=== PATIENT | male | born 1970 | race Caucasian/White ===

== ENCOUNTER → 2018-04-17 14:40 | Outpatient (CLI) | payer MEDICARE, MEDICAID, SELFPAY ==
[2018-04-17 16:00] LABS: INR 2.8 (0.9-1.3); Prothrombin Time 30.1 SECONDS (10.1-12.7)
== END ==
PROVIDERS: PCP Family Medicine; Visit Provider Family Medicine
DX: R00.2 Palpitations (principal); I82.409 Acute embolism and thrombosis of unspecified deep veins of unspecified lower extremity
CPT/HCPCS: 36415; 85610

== ENCOUNTER → 2018-05-19 11:21 | Outpatient (CLI) | payer MEDICARE, MEDICAID, SELFPAY ==
[2018-05-19 12:14] LABS: INR 2.6 (0.9-1.3); Prothrombin Time 28.7 SECONDS (10.1-12.7)
== END ==
PROVIDERS: PCP Family Medicine; Visit Provider Family Medicine
DX: R00.2 Palpitations (principal); I82.409 Acute embolism and thrombosis of unspecified deep veins of unspecified lower extremity
CPT/HCPCS: 36415; 85610

== ENCOUNTER → 2018-07-14 09:13 | Outpatient (CLI) | payer MEDICARE, MEDICAID, SELFPAY ==
[2018-07-14 10:07] LABS: Prothrombin Time 33.5 SECONDS (10.1-12.7)
== END ==
PROVIDERS: PCP Family Medicine; Visit Provider Family Medicine
DX: R00.2 Palpitations (principal); I82.409 Acute embolism and thrombosis of unspecified deep veins of unspecified lower extremity
CPT/HCPCS: 36415; 85610

== ENCOUNTER → 2018-09-16 10:44 | Outpatient (CLI) | payer MEDICARE, MEDICAID, SELFPAY ==
[2018-09-16 11:33] LABS: INR 3.3 (0.9-1.3); Prothrombin Time 36.8 SECONDS (10.1-12.7)
== END ==
PROVIDERS: PCP Family Medicine; Visit Provider Family Medicine
DX: R00.2 Palpitations (principal); I82.409 Acute embolism and thrombosis of unspecified deep veins of unspecified lower extremity
CPT/HCPCS: 36415; 85610

== ENCOUNTER → 2018-10-20 09:08 | Outpatient (CLI) | payer MEDICARE, MEDICAID, SELFPAY ==
[2018-10-20 10:31] LABS: INR 2.5 (0.9-1.3); Prothrombin Time 28.9 SECONDS (10.1-12.7)
== END ==
PROVIDERS: PCP Family Medicine; Visit Provider Family Medicine
DX: I82.409 Acute embolism and thrombosis of unspecified deep veins of unspecified lower extremity (principal); Z79.01 Long term (current) use of anticoagulants
CPT/HCPCS: 36415; 85610

== ENCOUNTER → 2018-11-19 12:12 | Outpatient (CLI) | payer MEDICARE, MEDICAID, SELFPAY ==
[2018-11-19 12:38] LABS: Prothrombin Time 35.8 SECONDS (10.1-12.7)
== END ==
PROVIDERS: PCP Family Medicine; Visit Provider Family Medicine
DX: I82.409 Acute embolism and thrombosis of unspecified deep veins of unspecified lower extremity (principal); Z79.01 Long term (current) use of anticoagulants
CPT/HCPCS: 36415; 85610

== ENCOUNTER → 2018-12-15 13:36 | Outpatient (CLI) | payer MEDICARE, MEDICAID, SELFPAY ==
[2018-12-15 14:39] LABS: INR 3.1 (0.9-1.3); Prothrombin Time 36.5 SECONDS (10.1-12.7)
== END ==
PROVIDERS: PCP Family Medicine; Visit Provider Family Medicine
DX: I82.409 Acute embolism and thrombosis of unspecified deep veins of unspecified lower extremity (principal)
CPT/HCPCS: 36415; 85610

== ENCOUNTER → 2019-01-13 12:42 | Outpatient (CLI) | payer MEDICARE, MEDICAID, SELFPAY ==
[2019-01-13 13:56] LABS: INR 3.1 (0.9-1.3)
== END ==
PROVIDERS: PCP Family Medicine; Visit Provider Family Medicine
DX: I82.409 Acute embolism and thrombosis of unspecified deep veins of unspecified lower extremity (principal)
CPT/HCPCS: 36415; 85610

== ENCOUNTER → 2019-02-12 14:33 | Outpatient (CLI) | payer MEDICARE, MEDICAID, SELFPAY ==
[2019-02-12 16:23] LABS: INR 2.4 (0.9-1.3); Prothrombin Time 28.5 SECONDS (10.1-12.7)
== END ==
PROVIDERS: PCP Family Medicine; Visit Provider Family Medicine
DX: I82.409 Acute embolism and thrombosis of unspecified deep veins of unspecified lower extremity (principal)
CPT/HCPCS: 36415; 85610

== ENCOUNTER → 2019-03-13 10:24 | Outpatient (ROUT) | payer MEDICARE, SELFPAY ==
[2019-03-13 10:32] LABS: INR 3.1 (0.9-1.3); Prothrombin Time 37.3 SECONDS (10.1-12.7)
== END ==
PROVIDERS: Visit Provider Family Medicine
DX: I82.409 Acute embolism and thrombosis of unspecified deep veins of unspecified lower extremity (principal)
CPT/HCPCS: 85610

== ENCOUNTER → 2019-04-14 10:52 | Outpatient (CLI) | payer MEDICARE, MEDICAID, SELFPAY ==
[2019-04-14 12:23] LABS: INR 3.3 (0.9-1.3); Prothrombin Time 38.4 SECONDS (10.1-12.7)
== END ==
PROVIDERS: PCP Family Medicine; Visit Provider Family Medicine
DX: I82.409 Acute embolism and thrombosis of unspecified deep veins of unspecified lower extremity (principal)
CPT/HCPCS: 36415; 85610

== ENCOUNTER → 2019-05-18 11:43 | Outpatient (CLI) | payer MEDICARE, MEDICAID, SELFPAY ==
[2019-05-18 12:49] LABS: INR 2.7 (0.9-1.3); Prothrombin Time 31.7 SECONDS (10.1-12.7)
== END ==
PROVIDERS: PCP Student in an Organized Health Care Education/Training Program; Visit Provider Student in an Organized Health Care Education/Training Program
DX: I82.409 Acute embolism and thrombosis of unspecified deep veins of unspecified lower extremity (principal)
CPT/HCPCS: 36415; 85610

== ENCOUNTER → 2019-06-15 12:44 | Outpatient (CLI) | payer MEDICARE, MEDICAID, SELFPAY ==
[2019-06-15 13:52] LABS: INR 2.1 (0.9-1.3); Prothrombin Time 24.6 SECONDS (10.1-12.7)
== END ==
PROVIDERS: PCP Student in an Organized Health Care Education/Training Program; Visit Provider Student in an Organized Health Care Education/Training Program
DX: I82.409 Acute embolism and thrombosis of unspecified deep veins of unspecified lower extremity (principal)
CPT/HCPCS: 36415; 85610

== ENCOUNTER → 2019-07-16 15:07 | Outpatient (CLI) | payer MEDICARE, MEDICAID, SELFPAY ==
[2019-07-16 15:53] LABS: INR 2.5 (0.9-1.3); Prothrombin Time 29.4 SECONDS (10.1-12.7)
== END ==
PROVIDERS: PCP Student in an Organized Health Care Education/Training Program; Visit Provider Family Medicine
DX: I82.409 Acute embolism and thrombosis of unspecified deep veins of unspecified lower extremity (principal)
CPT/HCPCS: 36415; 85610

== ENCOUNTER 2019-07-28 12:19 | Emergency (ER) | payer MEDICARE, OTHER, MEDICAID, SELFPAY ==
[2019-07-28 12:28] VITALS: BP 125/79; PULSE 66; RESP 13; TEMP 36.4; O2SAT 99
--- NOTE | 2019-07-28 13:09 | ED.LOWEXIN ---
HPI - Extremity Injury (Lower) <Pamela Metzger PA-C - Last Filed: 07/28/19 16:28> General Chief Complaint: Extremity Injury, Lower Stated Complaint: UNABLE TO PUT WEIGHT ON RIGHT ANKLE Time Seen by Provider: 07/28/19 12:37 Source: patient Mode of arrival: Ambulatory History of Present Illness HPI Narrative: Patient complains of pain in the right posterior heel, he thinks may be started on Saturday or at least worsening since then. He denies any fall or specific trauma, states he thinks maybe he walked a lot before the onset of pain. He does have a history of gout but states that this is not like previous episodes. He has taken indomethacin and allopurinol for that in the past. He has not noted new swelling in the leg. He states that pain is fairly constant, worse 1st thing in the morning and when he steps out of bed. He has tried ice, no medications. He states he is on warfarin for a left-sided DVT. He has not noted any pain approximately nor any new swelling. He denies any chest pain or dyspnea. He states he came here because unable to see PCP until a couple of weeks from now. Unable to add additional medical history above to chart secondary to technical issues Related Data Home Medications Medication Instructions Recorded Confirmed HYDROCHLOROTHIAZIDE (Hydrodiuril / 25 mg PO Q DAY #0 05/30/07 Hctz) LISINOPRIL (Zestril / Prinivil) 0 PO * DOSE/FREQUENCY #0 05/30/07 Metoprolol Tartrate (Lopressor) 100 mg PO BID #0 05/30/07 omeprazole 40 mg PO QDAY #0 08/24/12 warfarin [Coumadin] 10 mg PO QDAY #0 08/24/12 Previous Rx's Medication Instructions Recorded colchicine 0.6 mg PO TID #30 tab 07/03/16 indomethacin [Indocin] 50 mg MO Q6H PRN #120 tab 07/03/16 prednisone 20 mg PO SEE INSTRUCTIONS #15 tab 07/03/16 Review of Systems <Pamela Metzger PA-C - Last Filed: 07/28/19 16:28> Review of Systems ROS Unobtainable: All systems reviewed & are unremarkable except as noted in HPI and below PFSH <Pamela Metzger PA-C - Last Filed: 07/28/19 16:28> Family History Other Gout Social History Smoking Status: Never smoker Family History Other Gout Social History Smoking Status: Never smoker Exam <Pamela Metzger PA-C - Last Filed: 07/28/19 16:28> Narrative Exam Narrative: GENERAL APPEARANCE: Patient sitting comfortably, in no distress. LUNGS: Clear to auscultation bilaterally. HEART: Rate and rhythm regular without murmur, normal S1 and S2, no S3 or S4. EXTREMITIES: Feet are warm and pink with intact pedal pulses, sensation grossly intact MUSCULOSKELETAL: Mild tenderness at the right distal Achilles and aponeurosis of the heel. No tenderness elsewhere over the foot or ankle. No tenderness over the calf. Full range of motion of the knee, ankle and foot nonweightbearing. DERMATOLOGIC: Mild erythema over the proximal Achilles area, nontender, no open areas or exanthem Initial Vital Signs Initial Vital Signs: Vital Signs Temperature 97.6 F 07/28/19 12:28 Pulse Rate 66 07/28/19 12:28 Respiratory Rate 13 07/28/19 12:28 Blood Pressure 125/79 07/28/19 12:28 Pulse Oximetry 99 07/28/19 12:28 <Arsen Garcia DO - Last Filed: 07/28/19 20:00> Initial Vital Signs Initial Vital Signs: Vital Signs Temperature 97.6 F 07/28/19 12:28 Pulse Rate 66 07/28/19 12:28 Respiratory Rate 13 07/28/19 12:28 Blood Pressure 125/79 07/28/19 12:28 Pulse Oximetry 99 07/28/19 12:28 Course <Pamela Metzger PA-C - Last Filed: 07/28/19 16:28> Vital Signs Vital signs: Vital Signs - 8 hr 07/28/19 12:28 Temperature 97.6 F Pulse Rate 66 Respiratory Rate 13 Blood Pressure 125/79 Pulse Oximetry 99 <DO Destiney Wilson Last Filed: 07/28/19 20:00> Vital Signs Vital signs: Vital Signs - 8 hr 07/28/19 12:28 Temperature 97.6 F Pulse Rate 66 Respiratory Rate 13 Blood Pressure 125/79 Pulse Oximetry 99 Discharge Plan Departure Patient Disposition: Home Clinical Impression: Plantar fasciitis, right Discharge Date/Time: 07/28/19 13:40 Instructions: DI for Plantar Fasciitis Activity Restrictions/Additional Instructions: I agree with you that your pain is most consistent with plantar fasciitis, but you also look like you have some irritation on your heel, maybe where your shoe is rubbing on it, so please make sure you have some padding on that area to avoid pressure. Wear a supportive shoe at all times, even when indoors. Try some heel seats for your shoes and exercises (I have found the ones on [email or web address] very helpful, they have a good list, and the shoe inserts are excellent also). Make sure you do the exercises several times a day, especially before you get out of bed. Try icing the heel as you have been. Since you are on a blood thinner, you can take Tylenol for pain as needed, but avoid anti-inflammatories. Please see your PCP in the next couple of weeks for follow-up to determine whether further treatment or referral may be needed for this. As we talked about, please return if you have any acutely worsening symptoms in the interim Prescriptions: No Action LISINOPRIL (Zestril / Prinivil) 0 PO * DOSE/FREQUENCY Qty: 0 RF: 0 HYDROCHLOROTHIAZIDE (Hydrodiuril / Hctz) 25 mg PO Q DAY Qty: 0 RF: 0 Metoprolol Tartrate (Lopressor) 100 mg PO BID Qty: 0 RF: 0 warfarin [Coumadin] 7.5 MG tablet 10 mg PO QDAY Qty: 0 RF: 0 omeprazole 40 MG capsule,delayed release(DR/EC) 40 mg PO QDAY Qty: 0 RF: 0 indomethacin [Indocin] 50 MG suppository 50 mg MO Q6H PRNQty: 120 RF: 1 prednisone 20 MG tablet 20 mg PO SEE INSTRUCTIONS Qty: 15 RF: 0 colchicine 0.6 MG tablet 0.6 mg PO TID Qty: 30 RF: 0 Referrals: Jaci Dykes MD [Primary Care Provider] -
== END 2019-07-28 13:40 | disposition home or self-care (01) ==
PROVIDERS: Emergency Provider Internal Medicine; PCP Student in an Organized Health Care Education/Training Program
DX: M72.2 Plantar fascial fibromatosis (principal)
CPT/HCPCS: 99282

== ENCOUNTER → 2019-08-17 14:34 | Outpatient (CLI) | payer MEDICARE, MEDICAID, SELFPAY ==
[2019-08-17 15:01] LABS: Prothrombin Time 23.1 SECONDS (10.1-12.7)
== END ==
PROVIDERS: Family Medicine; PCP Student in an Organized Health Care Education/Training Program; Visit Provider Student in an Organized Health Care Education/Training Program
DX: I82.409 Acute embolism and thrombosis of unspecified deep veins of unspecified lower extremity (principal)
CPT/HCPCS: 36415; 85610

== ENCOUNTER → 2019-09-16 11:38 | Outpatient (CLI) | payer MEDICARE, MEDICAID, SELFPAY ==
[2019-09-16 12:11] LABS: INR 3.1 (0.9-1.3); Prothrombin Time 36.6 SECONDS (10.1-12.7)
== END ==
PROVIDERS: PCP Student in an Organized Health Care Education/Training Program; Visit Provider Student in an Organized Health Care Education/Training Program
DX: I82.409 Acute embolism and thrombosis of unspecified deep veins of unspecified lower extremity (principal)
CPT/HCPCS: 36415; 85610

== ENCOUNTER → 2019-10-19 09:17 | Outpatient (CLI) | payer MEDICARE, MEDICAID, SELFPAY ==
[2019-10-19 10:27] LABS: INR 1.9 (0.9-1.3); Prothrombin Time 22.2 SECONDS (10.1-12.7)
== END ==
PROVIDERS: PCP Student in an Organized Health Care Education/Training Program; Visit Provider Student in an Organized Health Care Education/Training Program
DX: I82.409 Acute embolism and thrombosis of unspecified deep veins of unspecified lower extremity (principal)
CPT/HCPCS: 36415; 85610

== ENCOUNTER → 2019-11-06 14:36 | Outpatient (CLI) | payer MEDICARE, MEDICAID, SELFPAY ==
[2019-11-06 15:21] LABS: INR 2.2 (0.9-1.3); Prothrombin Time 25.6 SECONDS (10.1-12.7)
== END ==
PROVIDERS: PCP Student in an Organized Health Care Education/Training Program; Visit Provider Student in an Organized Health Care Education/Training Program
DX: I82.409 Acute embolism and thrombosis of unspecified deep veins of unspecified lower extremity (principal)
CPT/HCPCS: 36415; 85610

== ENCOUNTER → 2019-12-17 10:44 | Outpatient (CLI) | payer MEDICARE, MEDICAID, SELFPAY ==
[2019-12-17 12:08] LABS: INR 2.5 (0.9-1.3); Prothrombin Time 29.1 SECONDS (10.1-12.7)
== END ==
PROVIDERS: PCP Student in an Organized Health Care Education/Training Program; Referring Provider Student in an Organized Health Care Education/Training Program; Visit Provider Student in an Organized Health Care Education/Training Program
DX: I82.409 Acute embolism and thrombosis of unspecified deep veins of unspecified lower extremity (principal)
CPT/HCPCS: 36415; 85610

== ENCOUNTER 2019-12-22 12:49 | Emergency (ER) | payer MEDICARE, MEDICAID, SELFPAY ==
[2019-12-22 12:51] VITALS: BP 146/66; PULSE 59; RESP 19; TEMP 37; O2SAT 98
--- NOTE | 2019-12-22 13:15 | ED.EXTPRO ---
HPI - Extremity Problem <MANUEL Beard - Last Filed: 12/22/19 15:06> General Chief complaint: Extremity Problem,Nontraumatic Stated complaint: Possible Blood Clott in Right Leg Time Seen by Provider: 12/22/19 12:56 Source: patient Mode of arrival: Ambulatory Limitations: no limitations History of Present Illness HPI Narrative: This is a 49-year-old male, nonsmoker, who presents to ED with concerns of possible blood clot on right lower leg. Patient has history of DVT in left lower leg and is currently taking Coumadin and gets his INR checked monthly. Patient reports he had missed couple of doses in October and his INR was slightly low but when he checked INR last time at the end of November this has been corrected in therapeutic level. Patient reports he had some discomfort on right calf earlier but this has been resolved after he had participated in [employer] total 5 games during this past weekend. Patient denies redness or swelling to his right lower leg. He noticed some color changes in lateral anterior right lower leg when he pressed over superficial vein. He states it became pale/blue when he depressed and turned pink when he let it go which got him concerned. Patient denies recent bedrest or prolonged travel. Patient denies chest pain, or breathing difficulty. Related Data Home Medications Medication Instructions Recorded Confirmed metoprolol tartrate 100 mg PO BID #0 05/30/07 12/22/19 allopurinol 300 mg PO DAILY 12/22/19 12/22/19 atorvastatin 10 mg PO QPM 12/22/19 12/22/19 hydrochlorothiazide 25 mg PO DAILY 12/22/19 12/22/19 lisinopril 20 mg PO BID 12/22/19 12/22/19 omeprazole 20 mg PO DAILY 12/22/19 12/22/19 warfarin 10 mg PO QPM 12/22/19 12/22/19 Allergies Allergy/AdvReac Type Severity Reaction Status Date / Time No Known Drug Allergies Allergy Verified 12/22/19 14:45 Review of Systems <MANUEL Beard - Last Filed: 12/22/19 15:06> Review of Systems Narrative: General: Denies fever, chills, fatigue, malaise, sweats. HEENT: Denies sinus pain, ear pain, sore throat, difficulty swallowing, dizziness. Respiratory: Denies dyspnea, cough, wheezing, hemoptysis, sputum. Cardiovascular: Denies chest pain, palpitations, orthopnea, edema. Gastrointestinal: Denies nausea, vomiting, abdominal pain, diarrhea, constipation, melena. : Denies dysuria, frequency, incontinence, hematuria, urinary retention. Musculoskeletal: See HPI Skin: Denies rash, skin lesions, or other. Neurologic: Denies weakness, headache, numbness, change in speech, confusion, seizures, incoordination. Psychiatric: No concerning psychosocial issues. 12-point review of systems is negative except for those stated above. Patient History <MANUEL Beard - Last Filed: 12/22/19 15:06> Medical History H/O: HTN (hypertension) (Chronic) Family History Other Gout Social History Smoking Status: Never smoker Smoking Status: Never smoker Substance Use Type: does not use Exam <MANUEL Beard - Last Filed: 12/22/19 15:06> Narrative Exam Narrative: General appearance: well developed, well nourished, in no acute distress. Head: normocephalic, atraumatic, no scalp lesions, non-tender. ENT: Hearing grossly intact. Nose without bleeding, purulent discharge. Mucous membrane moist, no mucosal lesion. Throat without erythema, tonsillar hypertrophy or exudate. Uvula in midline, airway patent. Neck/Thyroid: neck supple, full range of motion, no visible masses or meningeal signs. No JVD, non-tender without lymphadenopathy. Skin: no suspicious rashes, lesions over visible areas. Warm and dry and appropriate color for ethnicity. Heart: no clubbing, no cyanosis, no edema. S1 and S2 normal. RRR w/o murmurs, clicks, or bruits. Lungs: Breathing even and unlabored. No stridor. No accessory muscles used. Able to speak in full sentences. Chest: normal shape and expansion. Abdomen: non-obese, non-distended. Neurologic: alert and oriented. Cognitive exam, [employer] and PNS grossly intact on informal exam. Psych: good eye contact, normal affect. Initial Vital Signs Initial Vital Signs: Vital Signs Temperature 98.6 F 12/22/19 12:51 Pulse Rate 59 L 12/22/19 12:51 Respiratory Rate 19 12/22/19 12:51 Blood Pressure 146/66 H 12/22/19 12:51 Pulse Oximetry 98 12/22/19 12:51 Extrem General: normal to inspection and full ROM Right lower extremity: normal to inspection, full ROM, lower leg Details: normal to inspection and no edema; no erythema, no tenderness, no localized swelling and no ecchymosis, ankle Details: normal to inspection; no tenderness and foot (Negative Homans sign) Details: normal to inspection; no tenderness; no cyanosis and no edema Left lower extremity: normal to inspection and full ROM <Zahraa Le MD - Last Filed: 12/22/19 18:02> Initial Vital Signs Initial Vital Signs: Vital Signs Temperature 98.6 F 12/22/19 12:51 Pulse Rate 59 L 12/22/19 12:51 Respiratory Rate 19 12/22/19 12:51 Blood Pressure 146/66 H 12/22/19 12:51 Pulse Oximetry 98 12/22/19 12:51 Scores <MANUEL Beard - Last Filed: 12/22/19 15:06> GCS [place] coma scale eye opening: Spontaneous [place] coma scale verbal response: Orientated [place] coma scale motor response: Obey commands [place] coma scale total score: 15 Wells' Criteria for DVT Active Cancer (Treatment within 6 months): No Bedridden recently >3 days or major surgery within 4 weeks: No Calf Swelling >3cm compared to other leg: No Collateral (nonvericose) superficial veins present: Yes Entire leg swollen: No Localized tenderness along the deep vein system: No Pitting edema, confined to symtomatic leg: No Paralysis, paresis, or recent plaster immobilization of ext: No Previously documented DVT: Yes Alternative dx to DVT as likely or more likely: Yes Wells' criteria for DVT: 0 Course <MANUEL Beard - Last Filed: 12/22/19 15:06> Orders Ordered: ED Orders 12/22/19 13:25 D Dimer Stat Prothrombin Time INR Stat Vital Signs Vital signs: Vital Signs - 8 hr 12/22/19 12:51 Temperature 98.6 F Pulse Rate 59 L Respiratory Rate 19 Blood Pressure 146/66 H Pulse Oximetry 98 <Zahraa Le MD - Last Filed: 12/22/19 18:02> Orders Ordered: ED Orders 12/22/19 13:25 D Dimer Stat Prothrombin Time INR Stat Vital Signs Vital signs: Vital Signs - 8 hr 12/22/19 12:51 Temperature 98.6 F Pulse Rate 59 L Respiratory Rate 19 Blood Pressure 146/66 H Pulse Oximetry 98 MDM - Extremity (Nontraumatic) <MANUEL Beard - Last Filed: 12/22/19 15:06> Differential Diagnosis Differential diagnosis: Likely deep vein thrombosis of lower extremity and other (calf strain) Medical Records Attestation: I reviewed the patient's medical records. Lab Data Attestation: I reviewed the patient's lab results. Labs: Lab Results 12/22/19 Range/Units 13:25 PT 26.5 H (10.1-12.7) SECONDS INR 2.3 H (0.9-1.3) D-Dimer < 200 (<230) ng/mL [facility] Narrative Medical decision making narrative: This is a 49-year-old gentleman who has history of DVT on left leg presents to ED with concerns of right lower leg color changes. Patient is currently taking Coumadin as scheduled for this. Patient denies current calf pain, redness, swelling. Patient had some discomfort earlier but he had participated in basketball tournament over this weekend. Patient reports blanchable color changes in right lateral anterior [place] over superficial veins. Physical exam is benign. Wells criteria for DVTs 0. D-dimer is negative with INR of 2.3. Ultrasound test on lower extremity was not done with negative D-dimer test, patient currently on Coumadin, and with unremarkable physical exam. Patient advised continue with current medication regimen and follow up with his PCP. Return precautions were discussed with the patient and patient verbalized understanding and in agreement with treatment plan. <Zahraa Le MD - Last Filed: 12/22/19 18:02> Lab Data Labs: Lab Results 12/22/19 Range/Units 13:25 PT 26.5 H (10.1-12.7) SECONDS INR 2.3 H (0.9-1.3) D-Dimer < 200 (<230) ng/mL Discharge Plan Departure Patient Disposition: Home Clinical Impression: Strain of right calf muscle Discharge Date/Time: 12/22/19 14:58 Activity Restrictions/Additional Instructions: You have been diagnosed with [right calf strain, color change in right anterior lower leg above the blood vessels with depression to pale/blue and returning colors when let go should be normal. There is no calf swelling, redness, discomfort at this time. D-dimer was normal. Your INR today is 2.3]. What to do: *Take your medications as directed. *Follow up with your primary care provider in 2-3 days, call for an appointment. Let them know you were seen in the ED and that we asked you to be seen in follow up. *Return to ED if you have any new, worsening, or concerning symptoms, such as [chest pain, breathing difficulty, unable to tolerate fluids, leg redness/swelling/increasing pain, fever or any acute concerns]. Prescriptions: No Action metoprolol tartrate 100 mg Tablet 100 mg PO BID Qty: 0 RF: 0 atorvastatin 10 mg tablet 10 mg PO QPM RF: 0 lisinopril 20 mg tablet 20 mg PO BID RF: 0 warfarin 5 mg tablet 10 mg PO QPM RF: 0 omeprazole 20 mg capsule,delayed release(DR/EC) 20 mg PO DAILY RF: 0 allopurinol 300 mg tablet 300 mg PO DAILY RF: 0 hydrochlorothiazide 25 mg tablet 25 mg PO DAILY RF: 0 Referrals: Jaci Dykes MD [Primary Care Provider] -
[2019-12-22 13:44] LABS: INR 2.3 (0.9-1.3); Prothrombin Time 26.5 SECONDS (10.1-12.7)
[2019-12-22 14:20] LABS: D Dimer < 200 ng/mL (<230)
== END 2019-12-22 14:58 | disposition home or self-care (01) ==
PROVIDERS: Emergency Provider Nurse Practitioner Family; PCP Student in an Organized Health Care Education/Training Program; Referring Provider Family Medicine
DX: S86.911A Strain of unspecified muscle(s) and tendon(s) at lower leg level, right leg, initial encounter (principal); I82.409 Acute embolism and thrombosis of unspecified deep veins of unspecified lower extremity
CPT/HCPCS: 36415; 85379; 85610; 99281; 99283

== ENCOUNTER → 2020-01-15 08:38 | Outpatient (CLI) | payer MEDICARE, MEDICAID, SELFPAY ==
[2020-01-15 09:36] LABS: INR 2.9 (0.9-1.3); Prothrombin Time 33.4 SECONDS (10.1-12.7)
== END ==
PROVIDERS: PCP Student in an Organized Health Care Education/Training Program; Referring Provider Family Medicine; Visit Provider Family Medicine
DX: I82.409 Acute embolism and thrombosis of unspecified deep veins of unspecified lower extremity (principal)
CPT/HCPCS: 36415; 85610

== ENCOUNTER → 2020-02-16 14:36 | Outpatient (CLI) | payer MEDICARE, MEDICAID, SELFPAY ==
[2020-02-16 16:12] LABS: INR 3.1 (0.9-1.3); Prothrombin Time 34.9 SECONDS (10.1-12.7)
== END ==
PROVIDERS: PCP Student in an Organized Health Care Education/Training Program; Referring Provider Student in an Organized Health Care Education/Training Program; Visit Provider Student in an Organized Health Care Education/Training Program
DX: I82.409 Acute embolism and thrombosis of unspecified deep veins of unspecified lower extremity (principal)
CPT/HCPCS: 36415; 85610

== ENCOUNTER → 2020-03-23 10:33 | Outpatient (CLI) | payer MEDICARE, MEDICAID, SELFPAY ==
[2020-03-23 11:27] LABS: INR 2.6 (0.9-1.3); Prothrombin Time 29.8 SECONDS (10.1-12.7)
== END ==
PROVIDERS: PCP Student in an Organized Health Care Education/Training Program; Referring Provider Family Medicine; Visit Provider Family Medicine
DX: I82.409 Acute embolism and thrombosis of unspecified deep veins of unspecified lower extremity (principal)
CPT/HCPCS: 36415; 85610

== ENCOUNTER → 2020-05-30 11:41 | Outpatient (CLI) | payer MEDICARE, MEDICAID, SELFPAY ==
[2020-05-30 12:29] LABS: Prothrombin Time 33.9 SECONDS (10.1-12.7)
== END ==
PROVIDERS: PCP Student in an Organized Health Care Education/Training Program; Referring Provider Family Medicine; Visit Provider Family Medicine
DX: I82.409 Acute embolism and thrombosis of unspecified deep veins of unspecified lower extremity (principal)
CPT/HCPCS: 36415; 85610

== ENCOUNTER → 2020-07-18 16:53 | Outpatient (CLI) | payer MEDICARE, MEDICAID, SELFPAY ==
[2020-07-18 18:19] LABS: INR 2.5 (0.9-1.3); Prothrombin Time 28.5 SECONDS (10.1-12.7)
== END ==
PROVIDERS: PCP Student in an Organized Health Care Education/Training Program; Referring Provider Student in an Organized Health Care Education/Training Program; Visit Provider Family Medicine
DX: I82.409 Acute embolism and thrombosis of unspecified deep veins of unspecified lower extremity (principal)
CPT/HCPCS: 36415; 85610

== ENCOUNTER → 2020-08-18 14:25 | Outpatient (CLI) | payer MEDICARE, MEDICAID, SELFPAY ==
[2020-08-18 15:24] LABS: INR 3.2 (0.9-1.3); Prothrombin Time 36.5 SECONDS (10.1-12.7)
== END ==
PROVIDERS: PCP Student in an Organized Health Care Education/Training Program; Referring Provider Student in an Organized Health Care Education/Training Program; Visit Provider Student in an Organized Health Care Education/Training Program
DX: I82.409 Acute embolism and thrombosis of unspecified deep veins of unspecified lower extremity (principal); Z79.01 Long term (current) use of anticoagulants
CPT/HCPCS: 36415; 85610

== ENCOUNTER → 2020-09-16 09:16 | Outpatient (CLI) | payer MEDICARE, MEDICAID, SELFPAY ==
[2020-09-16 11:10] LABS: INR 2.5 (0.9-1.3); Prothrombin Time 28.6 SECONDS (10.1-12.7)
== END ==
PROVIDERS: PCP Student in an Organized Health Care Education/Training Program; Referring Provider Student in an Organized Health Care Education/Training Program; Visit Provider Student in an Organized Health Care Education/Training Program
DX: I82.409 Acute embolism and thrombosis of unspecified deep veins of unspecified lower extremity (principal); Z79.01 Long term (current) use of anticoagulants
CPT/HCPCS: 36415; 85610

== ENCOUNTER → 2020-10-17 15:12 | Outpatient (CLI) | payer MEDICARE, MEDICAID, SELFPAY ==
[2020-10-17 16:17] LABS: INR 2.8 (0.9-1.3); Prothrombin Time 31.3 SECONDS (10.1-12.7)
== END ==
PROVIDERS: PCP Student in an Organized Health Care Education/Training Program; Referring Provider Student in an Organized Health Care Education/Training Program; Visit Provider Student in an Organized Health Care Education/Training Program
DX: Z79.01 Long term (current) use of anticoagulants (principal)
CPT/HCPCS: 36415; 85610

== ENCOUNTER → 2020-11-18 09:12 | Outpatient (CLI) | payer MEDICARE, MEDICAID, SELFPAY ==
[2020-11-18 10:39] LABS: INR 2.6 (0.9-1.3); Prothrombin Time 29.4 SECONDS (10.1-12.7)
== END ==
PROVIDERS: PCP Student in an Organized Health Care Education/Training Program; Referring Provider Student in an Organized Health Care Education/Training Program; Visit Provider Student in an Organized Health Care Education/Training Program
DX: I82.409 Acute embolism and thrombosis of unspecified deep veins of unspecified lower extremity (principal); Z79.01 Long term (current) use of anticoagulants
CPT/HCPCS: 36415; 85610

== ENCOUNTER → 2020-12-14 13:09 | Outpatient (CLI) | payer MEDICARE, MEDICAID, SELFPAY ==
[2020-12-14 13:35] LABS: INR 2.5 (0.9-1.3)
== END ==
PROVIDERS: PCP Student in an Organized Health Care Education/Training Program; Referring Provider Student in an Organized Health Care Education/Training Program; Visit Provider Student in an Organized Health Care Education/Training Program
DX: Z79.01 Long term (current) use of anticoagulants (principal); I82.409 Acute embolism and thrombosis of unspecified deep veins of unspecified lower extremity
CPT/HCPCS: 36415; 85610

== ENCOUNTER → 2021-01-17 11:42 | Outpatient (CLI) | payer MEDICARE, MEDICAID, SELFPAY ==
[2021-01-17 12:52] LABS: INR 2.5 (0.9-1.3); Prothrombin Time 28.3 SECONDS (10.1-12.7)
== END ==
PROVIDERS: PCP Student in an Organized Health Care Education/Training Program; Referring Provider Student in an Organized Health Care Education/Training Program; Visit Provider Student in an Organized Health Care Education/Training Program
DX: I82.409 Acute embolism and thrombosis of unspecified deep veins of unspecified lower extremity (principal); Z79.01 Long term (current) use of anticoagulants
CPT/HCPCS: 36415; 85610

== ENCOUNTER → 2021-02-15 12:40 | Outpatient (CLI) | payer MEDICARE, MEDICAID, SELFPAY ==
[2021-02-15 13:14] LABS: INR 2.2 (0.9-1.3); Prothrombin Time 24.5 SECONDS (10.1-12.7)
== END ==
PROVIDERS: PCP Student in an Organized Health Care Education/Training Program; Referring Provider Student in an Organized Health Care Education/Training Program; Visit Provider Student in an Organized Health Care Education/Training Program
DX: Z79.01 Long term (current) use of anticoagulants (principal); I82.409 Acute embolism and thrombosis of unspecified deep veins of unspecified lower extremity
CPT/HCPCS: 36415; 85610

== ENCOUNTER → 2021-03-17 09:41 | Outpatient (CLI) | payer MEDICARE, MEDICAID, SELFPAY ==
[2021-03-17 10:12] LABS: INR 1.9 (0.9-1.3); Prothrombin Time 21.8 SECONDS (10.1-12.7)
== END ==
PROVIDERS: PCP Student in an Organized Health Care Education/Training Program; Referring Provider Student in an Organized Health Care Education/Training Program; Visit Provider Student in an Organized Health Care Education/Training Program
DX: I82.409 Acute embolism and thrombosis of unspecified deep veins of unspecified lower extremity (principal); Z79.01 Long term (current) use of anticoagulants
CPT/HCPCS: 36415; 85610

== ENCOUNTER → 2021-04-14 09:26 | Outpatient (ROUT) | payer MEDICARE, MEDICAID, SELFPAY ==
[2021-04-14 09:32] LABS: INR 1.7 (0.9-1.3); Prothrombin Time 19.9 SECONDS (10.1-12.7)
== END ==
PROVIDERS: Visit Provider Student in an Organized Health Care Education/Training Program
DX: I82.409 Acute embolism and thrombosis of unspecified deep veins of unspecified lower extremity (principal); Z79.01 Long term (current) use of anticoagulants
CPT/HCPCS: 85610

== ENCOUNTER → 2021-05-17 10:10 | Outpatient (CLI) | payer MEDICARE, MEDICAID, SELFPAY ==
[2021-05-17 12:07] LABS: INR 2.4 (0.9-1.3); Prothrombin Time 27.1 SECONDS (10.1-12.7)
== END ==
PROVIDERS: PCP Student in an Organized Health Care Education/Training Program; Referring Provider Student in an Organized Health Care Education/Training Program; Visit Provider Student in an Organized Health Care Education/Training Program
DX: I82.409 Acute embolism and thrombosis of unspecified deep veins of unspecified lower extremity (principal); Z79.01 Long term (current) use of anticoagulants
CPT/HCPCS: 36415; 85610

== ENCOUNTER → 2021-06-20 11:12 | Outpatient (CLI) | payer MEDICARE, MEDICAID, SELFPAY ==
[2021-06-20 12:55] LABS: Prothrombin Time 23.3 SECONDS (10.1-12.7)
== END ==
PROVIDERS: PCP Student in an Organized Health Care Education/Training Program; Referring Provider Student in an Organized Health Care Education/Training Program; Visit Provider Student in an Organized Health Care Education/Training Program
DX: I82.409 Acute embolism and thrombosis of unspecified deep veins of unspecified lower extremity (principal); Z79.01 Long term (current) use of anticoagulants
CPT/HCPCS: 36415; 85610

== ENCOUNTER → 2021-07-21 14:12 | Outpatient (CLI) | payer MEDICARE, MEDICAID, SELFPAY ==
[2021-07-21 15:16] LABS: INR 2.4 (0.9-1.3); Prothrombin Time 27.3 SECONDS (10.1-12.7)
== END ==
PROVIDERS: PCP Student in an Organized Health Care Education/Training Program; Referring Provider Student in an Organized Health Care Education/Training Program; Visit Provider Student in an Organized Health Care Education/Training Program
DX: Z79.01 Long term (current) use of anticoagulants (principal)
CPT/HCPCS: 36415; 85610

== ENCOUNTER → 2021-08-19 09:40 | Outpatient (CLI) | payer MEDICARE, MEDICAID, SELFPAY ==
[2021-08-19 17:05] LABS: INR 2.6 (0.9-1.3)
== END ==
PROVIDERS: PCP Student in an Organized Health Care Education/Training Program; Referring Provider Student in an Organized Health Care Education/Training Program; Visit Provider Student in an Organized Health Care Education/Training Program
DX: I82.409 Acute embolism and thrombosis of unspecified deep veins of unspecified lower extremity (principal); Z79.01 Long term (current) use of anticoagulants
CPT/HCPCS: 36415; 85610

== ENCOUNTER → 2021-09-19 08:20 | Outpatient (CLI) | payer MEDICARE, MEDICAID, SELFPAY ==
[2021-09-19 09:12] LABS: INR 2.4 (0.9-1.3)
== END ==
PROVIDERS: PCP Student in an Organized Health Care Education/Training Program; Referring Provider Student in an Organized Health Care Education/Training Program; Visit Provider Student in an Organized Health Care Education/Training Program
DX: Z79.01 Long term (current) use of anticoagulants (principal); I82.409 Acute embolism and thrombosis of unspecified deep veins of unspecified lower extremity
CPT/HCPCS: 36415; 85610

== ENCOUNTER → 2021-10-19 14:07 | Outpatient (CLI) | payer MEDICARE, MEDICAID, SELFPAY ==
[2021-10-19 15:13] LABS: INR 2.8 (0.9-1.3); Prothrombin Time 31.8 SECONDS (10.1-12.7)
== END ==
PROVIDERS: PCP Student in an Organized Health Care Education/Training Program; Referring Provider Student in an Organized Health Care Education/Training Program; Visit Provider Student in an Organized Health Care Education/Training Program
DX: Z79.01 Long term (current) use of anticoagulants (principal); I82.409 Acute embolism and thrombosis of unspecified deep veins of unspecified lower extremity
CPT/HCPCS: 36415; 85610

== ENCOUNTER → 2021-11-20 09:43 | Outpatient (CLI) | payer MEDICARE, MEDICAID, SELFPAY ==
[2021-11-20 11:17] LABS: INR 2.1 (0.9-1.3); Prothrombin Time 24.2 SECONDS (10.1-12.7)
== END ==
PROVIDERS: PCP Student in an Organized Health Care Education/Training Program; Referring Provider Student in an Organized Health Care Education/Training Program; Visit Provider Student in an Organized Health Care Education/Training Program
DX: I82.409 Acute embolism and thrombosis of unspecified deep veins of unspecified lower extremity (principal); Z79.01 Long term (current) use of anticoagulants
CPT/HCPCS: 36415; 85610

== ENCOUNTER → 2021-12-15 09:09 | Outpatient (CLI) | payer MEDICARE, MEDICAID, SELFPAY ==
[2021-12-15 10:00] LABS: INR 2.4 (0.9-1.3); Prothrombin Time 26.8 SECONDS (10.1-12.7)
== END ==
PROVIDERS: PCP Student in an Organized Health Care Education/Training Program; Referring Provider Student in an Organized Health Care Education/Training Program; Visit Provider Student in an Organized Health Care Education/Training Program
DX: I82.409 Acute embolism and thrombosis of unspecified deep veins of unspecified lower extremity (principal); Z79.01 Long term (current) use of anticoagulants
CPT/HCPCS: 36415; 85610

== ENCOUNTER → 2022-01-17 14:47 | Outpatient (CLI) | payer MEDICARE, MEDICAID, SELFPAY ==
[2022-01-17 15:36] LABS: INR 1.7 (0.9-1.3); Prothrombin Time 19.7 SECONDS (10.1-12.7)
== END ==
PROVIDERS: PCP Student in an Organized Health Care Education/Training Program; Referring Provider Student in an Organized Health Care Education/Training Program; Visit Provider Student in an Organized Health Care Education/Training Program
DX: I82.409 Acute embolism and thrombosis of unspecified deep veins of unspecified lower extremity (principal); Z79.01 Long term (current) use of anticoagulants
CPT/HCPCS: 36415; 85610

== ENCOUNTER → 2022-02-16 08:11 | Outpatient (CLI) | payer MEDICARE, MEDICAID, SELFPAY ==
[2022-02-16 10:07] LABS: INR 2.6 (0.9-1.3); Prothrombin Time 30.1 SECONDS (10.1-12.7)
== END ==
PROVIDERS: PCP Student in an Organized Health Care Education/Training Program; Referring Provider Student in an Organized Health Care Education/Training Program; Visit Provider Student in an Organized Health Care Education/Training Program
DX: Z79.01 Long term (current) use of anticoagulants (principal)
CPT/HCPCS: 36415; 85610

== ENCOUNTER → 2022-03-26 09:09 | Outpatient (CLI) | payer MEDICARE, MEDICAID, SELFPAY ==
[2022-03-26 10:47] LABS: INR 3.2 (0.9-1.3); Prothrombin Time 37.1 SECONDS (10.1-12.7)
== END ==
PROVIDERS: PCP Student in an Organized Health Care Education/Training Program; Referring Provider Student in an Organized Health Care Education/Training Program; Visit Provider Student in an Organized Health Care Education/Training Program
DX: Z79.01 Long term (current) use of anticoagulants (principal); I82.409 Acute embolism and thrombosis of unspecified deep veins of unspecified lower extremity
CPT/HCPCS: 36415; 85610

== ENCOUNTER → 2022-04-24 10:24 | Outpatient (ROUT) | payer MEDICARE, MEDICAID, SELFPAY ==
[2022-04-24 11:00] LABS: INR 2.1 (0.9-1.3); Prothrombin Time 23.9 SECONDS (10.1-12.7)
== END ==
PROVIDERS: PCP Student in an Organized Health Care Education/Training Program; Visit Provider Family Medicine
DX: I82.409 Acute embolism and thrombosis of unspecified deep veins of unspecified lower extremity (principal); Z79.01 Long term (current) use of anticoagulants
CPT/HCPCS: 85610

== ENCOUNTER → 2022-06-15 10:40 | Outpatient (CLI) | payer MEDICARE, MEDICAID, SELFPAY ==
[2022-06-15 12:01] LABS: INR 1.5 (0.9-1.3); Prothrombin Time 17.5 SECONDS (10.1-12.7)
== END ==
PROVIDERS: PCP Family Medicine; Referring Provider Student in an Organized Health Care Education/Training Program; Visit Provider Student in an Organized Health Care Education/Training Program
DX: Z79.01 Long term (current) use of anticoagulants (principal); I82.409 Acute embolism and thrombosis of unspecified deep veins of unspecified lower extremity
CPT/HCPCS: 36415; 85610

== ENCOUNTER → 2022-07-05 14:49 | Outpatient (CLI) | payer MEDICARE, MEDICAID, SELFPAY ==
[2022-07-05 15:35] LABS: INR 2.1 (0.9-1.3); Prothrombin Time 24.3 SECONDS (10.1-12.7)
== END ==
PROVIDERS: PCP Family Medicine; Referring Provider Family Medicine; Visit Provider Family Medicine
DX: Z79.01 Long term (current) use of anticoagulants (principal); I82.409 Acute embolism and thrombosis of unspecified deep veins of unspecified lower extremity
CPT/HCPCS: 36415; 85610

== ENCOUNTER → 2022-07-25 10:01 | Outpatient (CLI) | payer MEDICARE, MEDICAID, SELFPAY ==
[2022-07-25 11:54] LABS: COVID19 -Nasal RAPID Negative (Negative)
== END ==
PROVIDERS: PCP Family Medicine; Visit Provider Surgery
DX: Z20.822 Contact with and (suspected) exposure to COVID-19 (principal); Z01.812 Encounter for preprocedural laboratory examination
CPT/HCPCS: 87635; C9803

== ENCOUNTER 2022-07-26 07:36 | Day surgery (SDC) | payer MEDICARE, MEDICAID, SELFPAY ==
[2022-07-26 08:08] VITALS: BP 138/78; PULSE 89; RESP 16; TEMP 36.6; O2SAT 99; BMI 27.0
[2022-07-26] MEDS: LACTATED RINGERS 1,000 ML 200 ML IV (08:24)
--- NOTE | 2022-07-26 08:35 | PM.HP.1 ---
History of Present Illness History of Present Illness Date Patient Seen: 07/26/22 Time Patient Seen: 08:35 Chief complaint: Colonoscopy Narrative: Dinh is a 51-year-old gentleman who is here for colon cancer screening. He has never had a colonoscopy before. Has no known family history of colon cancer. Patient History Medical History (Updated 07/26/22 @ 08:35 by Joshua Mckeon MD) H/O: HTN (hypertension) Family & Social History Family History (System 07/21/21 @ 14:37 by Lady Malathi Torre) Other Gout Social History: household members friend(s) Tobacco & Substance use: Smoking Status Never smoker alcohol intake never Substance Use Type does not use Meds Home Medications and Allergies Home Medications Medication Instructions Recorded Confirmed Type metoprolol tartrate 100 mg tablet 100 mg PO BID ##0 05/30/07 07/26/22 History allopurinol 300 mg tablet 300 mg PO DAILY 12/22/19 07/26/22 History atorvastatin 10 mg tablet 10 mg PO QPM 12/22/19 07/26/22 History hydrochlorothiazide 25 mg tablet 25 mg PO DAILY 12/22/19 07/26/22 History lisinopril 20 mg tablet 20 mg PO BID 12/22/19 07/26/22 History omeprazole 20 mg capsule,delayed 20 mg PO DAILY 12/22/19 07/26/22 History release warfarin 5 mg tablet 10 mg PO QPM 12/22/19 07/26/22 History sodium sul 1.479 gram-potas ch See Rx Instructions PO PER PKG DIR 07/10/22 07/26/22 Rx 0.188 gram-magnes sul 0.225 gram #24 tabs tablet (Sutab) Allergies Allergy/AdvReac Type Severity Reaction Status Date / Time No Known Drug Allergies Allergy Verified 07/26/22 07:53 Exam Vital Signs (past 8 hours): - 07/26/22 08:08 Temperature 98 F Pulse Rate 89 Respiratory Rate 16 Blood Pressure 138/78 Pulse Oximetry 99 Oxygen Delivery Method Room Air Oxygen Delivery Method Room Air Const General: No acute distress Assessment & Plan Assessment and plan (1) Colon cancer screening: Status: Acute Plan We discussed risks and benefits of colonoscopy with sedation and he would like to proceed. Time Spent With Patient Critical Care time: I spent a total of [] minutes of critical care time on this patient's care today; this time is exclusive of procedural time.
[2022-07-26] MEDS: MIDAZOLAM 5 MG/5 ML VIAL 4 MG IV (08:42)
[2022-07-26] MEDS: fentaNYL 100 MCG/2 ML INJ IV (08:42)
--- NOTE | 2022-07-26 09:00 | PM.OP.COLON ---
Operative Date/Time/Diagnoses Date of procedure: 07/26/22 Time of procedure: 09:00 Pre-op diagnosis: Colon cancer screening Post-op diagnosis: same Procedure & Clinicians Study performed: Colonoscopy Same procedure as scheduled: Yes Surgeon: Joshua Mckeon Procedure Notes Procedure in detail: Surgeon: Joshua Mckeon MD Procedure: The patient was brought to the endoscopy suite, placed in left lateral decubitus position. The patient was connected to monitoring devices. A time-out was performed. Sedation was administered. Once the patient was adequately sedated, a digital rectal exam was performed and was normal. The scope was then inserted and advanced to the cecum where the appendiceal orifice was identified and photographed. The scope was then slowly withdrawn over greater than 6 minutes. The mucosa was thoroughly inspected. No polyps were noted. There were a few rare diverticula in the sigmoid colon. The scope was retroflexed in the rectum. No lesions were noted. The scope was straightened and removed. The patient was awakened and brought to recovery. Versed: 4 mg Fentanyl: 100 mcg EBL: 0 Findings: Normal colon Scope withdrawal time: 10 Sedation minutes: 16 Post-procedure Recommendations: Colonoscopy in 10 years Disposition: PACU
[2022-07-26 09:03] VITALS: BP 115/72; PULSE 73; RESP 12; TEMP 36.2; O2SAT 98
[2022-07-26 09:07] VITALS: BP 116/68; PULSE 75; RESP 11; O2SAT 99
[2022-07-26 09:12] VITALS: BP 119/76; PULSE 82; RESP 14; O2SAT 99
== END 2022-07-26 09:25 | disposition home or self-care (01) ==
PROVIDERS: PCP Family Medicine; Referring Provider Surgery; Visit Provider Surgery
PROC: 0DJD8ZZ Inspection of Lower Intestinal Tract, Via Natural or Artificial Opening Endoscopic (ICD-10-PCS; CPT 45378; principal; 2022-07-26 08:30)
DX: Z12.11 Encounter for screening for malignant neoplasm of colon (principal); I10 Essential (primary) hypertension; K57.30 Diverticulosis of large intestine without perforation or abscess without bleeding
CPT/HCPCS: G0121; 99152; J2250; J3010

== ENCOUNTER → 2022-08-15 09:35 | Outpatient (CLI) | payer MEDICARE, MEDICAID, SELFPAY ==
[2022-08-15 10:01] LABS: INR 1.9 (0.9-1.3); Prothrombin Time 21.5 SECONDS (10.1-12.7)
== END ==
PROVIDERS: PCP Family Medicine; Referring Provider Family Medicine; Visit Provider Family Medicine
DX: Z79.01 Long term (current) use of anticoagulants (principal); I82.409 Acute embolism and thrombosis of unspecified deep veins of unspecified lower extremity
CPT/HCPCS: 36415; 85610

== ENCOUNTER → 2022-08-29 15:08 | Outpatient (CLI) | payer MEDICARE, MEDICAID, SELFPAY ==
[2022-08-29 16:14] LABS: INR 1.3 (0.9-1.3); Prothrombin Time 14.6 SECONDS (10.1-12.7)
== END ==
PROVIDERS: PCP Family Medicine; Referring Provider Family Medicine; Visit Provider Family Medicine
DX: I82.409 Acute embolism and thrombosis of unspecified deep veins of unspecified lower extremity (principal); Z79.01 Long term (current) use of anticoagulants
CPT/HCPCS: 36415; 85610

== ENCOUNTER → 2022-09-12 07:31 | Outpatient (CLI) | payer MEDICARE, MEDICAID, SELFPAY ==
[2022-09-12 08:09] LABS: Prothrombin Time 11.9 SECONDS (10.1-12.7)
== END ==
PROVIDERS: PCP Family Medicine; Referring Provider Family Medicine; Visit Provider Family Medicine
DX: Z79.01 Long term (current) use of anticoagulants (principal); I82.409 Acute embolism and thrombosis of unspecified deep veins of unspecified lower extremity
CPT/HCPCS: 36415; 85610

== ENCOUNTER 2022-09-12 13:05 | Emergency (ER) | payer MEDICARE, MEDICAID, SELFPAY ==
[2022-09-12 13:49] VITALS: BP 131/80; PULSE 56; RESP 16; TEMP 36.4; O2SAT 99; BMI 26.1
--- NOTE | 2022-09-12 13:57 | DI.US.S_ITS ---
PROCEDURE: US PERIPH VENOUS LOW EXTREM LT INDICATIONS: SWELLING TECHNIQUE: Real-time imaging, as well as color and pulse Doppler interrogation, were performed of the lower extremity deep veins from the inguinal ligament to the popliteal fossa. COMPARISON: None. FINDINGS: The common femoral, femoral and popliteal veins are normally compressible, and free of intraluminal thrombus. Color and pulse Doppler demonstrate normal phasic intraluminal flow. There is normal augmentation response to distal compression maneuver. Internal echoes noted within the superficial venous vasculature at the lateral ankle. IMPRESSION: No evidence of deep venous thrombosis, left lower extremity Incidental subcutaneous superficial venous thrombosis at the ankle Approved by: Chris Teresa M.D. on 09/12/2022 at 15:14
--- NOTE | 2022-09-12 15:39 | ED.EXTPRO ---
HPI - Extremity Problem General Chief complaint: Extremity Problem,Nontraumatic Stated complaint: Needs leg looked at, DVT Time Seen by Provider: 09/12/22 15:29 Source: patient Mode of arrival: Family Vehicle Limitations: no limitations History of Present Illness HPI Narrative: Patient is a 51-year-old male. History of a DVT. Is on Coumadin. Had to come off of his Coumadin for couple days for procedure. And has been on it now for the past couple days. He has INR drawn earlier today. He had some discomfort along the outside of his left leg down your his ankle. There was no specific trauma but he was concerned about a blood clot. He denies chest pain. No shortness of breath. Related Data Home Medications Medication Instructions Recorded Confirmed metoprolol tartrate 100 mg tablet 100 mg PO BID ##0 05/30/07 07/26/22 allopurinol 300 mg tablet 300 mg PO DAILY 12/22/19 07/26/22 atorvastatin 10 mg tablet 10 mg PO QPM 12/22/19 07/26/22 hydrochlorothiazide 25 mg tablet 25 mg PO DAILY 12/22/19 07/26/22 lisinopril 20 mg tablet 20 mg PO BID 12/22/19 07/26/22 omeprazole 20 mg capsule,delayed 20 mg PO DAILY 12/22/19 07/26/22 release warfarin 5 mg tablet 10 mg PO QPM 12/22/19 07/26/22 Allergies Allergy/AdvReac Type Severity Reaction Status Date / Time No Known Drug Allergies Allergy Verified 09/12/22 13:53 Review of Systems Constitutional Constitutional: Reports system reviewed and no additional complaints, except as documented Musculoskeletal Musculoskeletal: Reports system reviewed and no additional complaints, except as documented Integumentary/Breasts Skin/Breast: Reports system reviewed and no additional complaints, except as documented Hematologic/Lymphatic On Anticoagulants: Yes Patient History Medical History (Updated 09/12/22 @ 16:26 by Kush Verdugo DO) H/O: HTN (hypertension) Family History (System 07/21/21 @ 14:37 by Lady Malathi Torre) Other Gout Social History household members: friend(s) Smoking Status: Never smoker alcohol intake: never Smoking Status: Never smoker Substance Use Type: does not use Exam Initial Vital Signs Initial Vital Signs: Vital Signs Temperature 97.5 F L 09/12/22 13:49 Pulse Rate 56 L 09/12/22 13:49 Respiratory Rate 16 09/12/22 13:49 Blood Pressure 131/80 09/12/22 13:49 Pulse Oximetry 99 09/12/22 13:49 Oxygen Delivery Method 09/12/22 13:49 Resp Effort & Inspection: normal respiratory effort Skin Other: Patient does have changes to his lower extremities consistent with venous stasis, hemosiderin staining. Extrem Other: Swelling to lower extremities but not pitting edema. Equal bilateral. Minimal Tenderness to palpation over varicose veins and lateral aspect of his distal left leg. No surrounding erythema. Course Orders Ordered: ED Orders 09/12/22 13:57 US periph venous low extrem lt Stat Vital Signs Vital signs: Vital Signs - 8 hr 09/12/22 13:49 Temperature 97.5 F L Pulse Rate 56 L Respiratory Rate 16 Blood Pressure 131/80 Pulse Oximetry 99 Oxygen Delivery Method Room Air MDM - Extremity (Nontraumatic) Imaging Data US - DVT: Radiologist's Impression: [place] [address] Ultrasound Report Signed Patient: Dinh Francis MR#: [id number] : 1970 Acct:[id number] Age/Sex: 51 / M Date of Service: 09/12/22 Loc: ED Accession Number: [id number] ?? Procedure: US periph venous low extrem lt Ordering Provider: Kush Verdugo D.O. PROCEDURE:? US PERIPH VENOUS LOW EXTREM LT ? INDICATIONS:? SWELLING ? TECHNIQUE:? Real-time imaging, as well as color and pulse Doppler interrogation, were performed of the lower extremity deep veins from the inguinal ligament to the popliteal fossa.? ? COMPARISON:? None. ? FINDINGS:? The common femoral, femoral and popliteal veins are normally compressible, and free of intraluminal thrombus.? Color and pulse Doppler demonstrate normal phasic intraluminal flow.? There is normal augmentation response to distal compression maneuver. ? ? Internal echoes noted within the superficial venous vasculature at the lateral ankle. ? IMPRESSION:? ? No evidence of deep venous thrombosis, left lower extremity ? Incidental subcutaneous superficial venous thrombosis at the ankle ? ? ? Approved by: Chris Teresa M.D. on 09/12/2022 at 15:14? [facility] Narrative Medical decision making narrative: No chest pain. No shortness of breath. No evidence of DVT noted on the exam. His INR today was 1.0. I did discuss this with his primary doctor's office and their plan was to have him take 1.5 tablets of Coumadin every day for the next week and follow-up with a repeat INR in 1 week from now. He is given return precautions. He expressed understanding and agreement Discharge Plan Departure Patient Disposition: Home Clinical Impression: Varicose vein of leg Instructions: DI for Varicose Veins Activity Restrictions/Additional Instructions: Your primary doctor's office would like you to take 1.5 tablets of your Coumadin/warfarin every day starting today for the next week. They would like you to follow-up next SaturdaySeptember 19 in their office for repeat blood draw to check your INR. Return to the emergency department for any new or worsening symptoms Prescriptions: No Action metoprolol tartrate 100 mg Tablet 100 mg PO BID Qty: 0 atorvastatin 10 mg tablet 10 mg PO QPM lisinopril 20 mg tablet 20 mg PO BID warfarin 5 mg tablet 10 mg PO QPM omeprazole 20 mg capsule,delayed release(DR/EC) 20 mg PO DAILY allopurinol 300 mg tablet 300 mg PO DAILY hydrochlorothiazide 25 mg tablet 25 mg PO DAILY Referrals: Taye Benavidez MD [Primary Care Provider] -
[2022-09-12 16:33] VITALS: BP 122/72; PULSE 60; RESP 12; O2SAT 99
== END 2022-09-12 16:39 | disposition home or self-care (01) ==
PROVIDERS: Emergency Provider Emergency Medicine; PCP Family Medicine
DX: I83.92 Asymptomatic varicose veins of left lower extremity (principal); I82.409 Acute embolism and thrombosis of unspecified deep veins of unspecified lower extremity; Z79.01 Long term (current) use of anticoagulants
CPT/HCPCS: 36415; 85610; 93971; 99283

== ENCOUNTER → 2022-09-19 15:13 | Outpatient (ROUT) | payer MEDICARE, MEDICAID, SELFPAY ==
[2022-09-19 15:25] LABS: INR 1.2 (0.9-1.3)
== END ==
PROVIDERS: PCP Family Medicine; Visit Provider Family Medicine
DX: I82.409 Acute embolism and thrombosis of unspecified deep veins of unspecified lower extremity (principal); Z79.01 Long term (current) use of anticoagulants
CPT/HCPCS: 85610